=== PATIENT | male | born 1950 | race Caucasian/White ===

== ENCOUNTER → 2017-09-29 | Outpatient (CLI) | payer OTHER, MEDICARE ==
[~2017-09-29] MED LIST: ATOR20TA9 PO; CHOL20002 PO; ESOM20CA31 PO; LYSI500T PO; MULT-516 PO
[2017-09-29 10:39] LABS: MICROSCOPIC NOT IND
[2017-09-29 10:41] LABS: BASOPHILS # (AUTO) 0.03 x10^3/uL (0-0.1); BASOPHILS % (AUTO) 1 % (0-1); EOSINOPHILS # (AUTO) 0.09 x10^3/uL (0-0.4); EOSINOPHILS % (AUTO) 2 % (1-7); LYMPHOCYTES # (AUTO) 1.43 x10^3/uL (1-3.4); LYMPHOCYTES % (AUTO) 26 % (22-44); MD NO; MEAN CORPUSCULAR HEMOGLOBIN 31.6 pg (27.5-34.5); MEAN CORPUSCULAR HGB CONC 34.2 g/dL (33.2-36.2); MEAN CORPUSCULAR VOLUME 92.3 fL (81-97); MEAN PLATELET VOLUME 7.5 fL (7.4-10.4); MONOCYTES # (AUTO) 0.43 x10^3/uL (0.2-0.8); MONOCYTES % (AUTO) 8 % (2-9); NEUTROPHILS # (AUTO) 3.57 x10^3/uL (1.8-6.8); NEUTROPHILS % (AUTO) 64 % (42-75); PLATELET COUNT 241 x10^3/uL (130-400); RED BLOOD COUNT 4.79 x10^6/uL (4.38-5.82); RED CELL DISTRIBUTION WIDTH 12.7 % (9.4-14.8)
[2017-09-29 10:47] LABS: INTERNATIONAL NORMALIZED RATIO 1.09 (0.93-1.1); PROTHROMBIN TIME 11.2 Seconds (9.6-11.5)
[2017-09-29 10:49] LABS: CREATININE 0.88 mg/dL (0.7-1.3); GLUCOSE, FASTING 94 mg/dL (74-106)
[2017-09-29 10:52] LABS: CULTURE INDICATED? NO
== END | disposition home or self-care (01) ==
LOC: RAD 09:06
PROVIDERS: ATTEND Internal Medicine
DX: Z01.818 Encounter for other preprocedural examination (principal); C61 Malignant neoplasm of prostate
CPT/HCPCS: 36415; 71046; 81003; 82565; 82947; 84132; 84295; 85025; 85610

== ENCOUNTER → 2017-10-09 | Outpatient (CLI) | payer OTHER, MEDICARE | END | disposition home or self-care (01) | LOC: LAB 11:26 | PROVIDERS: ATTEND Internal Medicine | DX: Z01.818 Encounter for other preprocedural examination (principal) | CPT/HCPCS: 36415; 86850; 86900 ==

== ENCOUNTER 2017-10-31 09:43 | Inpatient (IN) | payer OTHER, MEDICARE ==
[~2017-10-31] VITALS: Ht 180.3 cm; Wt 77.1 kg
[~2017-10-31 09:43] MED LIST changes: -CHOL20002 PO; +CHOL200052 PO
[2017-10-31] MEDS ORDERED: SODIUM CHLORIDE FLUSH 10ML SYR IVF ONE (10:30)
[2017-10-31] MEDS ORDERED: FAMOTIDINE 20 MG/2 ML IVP ONE (10:30)
[2017-10-31] MEDS ORDERED: ONDANSETRON ODT 4 MG PO ONE (10:30)
[2017-10-31] MEDS ORDERED: SODIUM CHLORIDE 0.9% 1,000ML IVBOLUS ONE (10:30)
[2017-10-31] MEDS ORDERED: ONDANSETRON ODT 4 MG ONE (10:36)
[2017-10-31] MEDS ORDERED: FAMOTIDINE 20 MG/2 ML ONE (10:37)
[2017-10-31 11:16] LABS: BASOPHILS % (AUTO) 0 % (0-1); EOSINOPHILS % (AUTO) 0 % (1-7); LYMPHOCYTES # (AUTO) 0.58 x10^3/uL (1-3.4); LYMPHOCYTES % (AUTO) 4 % (22-44); MD NO; MEAN CORPUSCULAR HEMOGLOBIN 32.3 pg (27.5-34.5); MEAN CORPUSCULAR VOLUME 92.4 fL (81-97); MEAN PLATELET VOLUME 7.1 fL (7.4-10.4); MONOCYTES % (AUTO) 2 % (2-9); NEUTROPHILS # (AUTO) 15.39 x10^3/uL (1.8-6.8); NEUTROPHILS % (AUTO) 94 % (42-75); PLATELET COUNT 431 x10^3/uL (130-400); RED BLOOD COUNT 4.37 x10^6/uL (4.38-5.82); RED CELL DISTRIBUTION WIDTH 12.3 % (9.4-14.8)
[2017-10-31 11:27] LABS: ALANINE AMINOTRANSFERASE 27 U/L (12-78); ALBUMIN 3.7 g/dL (3.4-5.0); ANION GAP 12 mmol/L (5-15); CALCIUM 9.5 mg/dL (8.5-10.1); CHLORIDE 102 mmol/L (98-107)
[2017-10-31 11:31] LABS: ALKALINE PHOSPHATASE 84 U/L (45-117); BILIRUBIN,TOTAL 0.6 mg/dL (0.2-1.0); TOTAL PROTEIN 8.1 g/dL (6.4-8.2); TROPONIN I < 0.015 ng/mL (0.000-0.045)
[2017-10-31] MEDS ORDERED: POTASSIUM CHLORIDE 20 MEQ in D5%-0.45% NACL 1,000 ML IV ONE (12:47)
[2017-10-31 12:55] LABS: CULTURE INDICATED? YES; MICROSCOPIC INDICATED
[2017-10-31] MEDS ORDERED: ONDANSETRON 2MG/ML, 2ML IVPush PRN (13:00)
[2017-10-31] MEDS ORDERED: SODIUM CHLORIDE FLUSH 10ML SYR IVF PRN (13:00)
[2017-10-31] MEDS ORDERED: LORazepam 2 MG/ML, 1ML ONE (13:13)
[2017-10-31 14:10] VITALS: BP 131/79
[2017-10-31] MEDS ORDERED: ONDANSETRON ODT 4 MG PO SCH (17:00)
[2017-10-31] MEDS ORDERED: NS + 20MEQ KCL 1,000 ML IV SCH (17:30)
[2017-10-31] MEDS ORDERED: ACETAMINOPHEN 500 MG TABLET PO SCH (18:00)
[2017-10-31] MEDS ORDERED: PROMETHAZINE 25 MG/ML, 1ML IM PRN (18:00)
[2017-10-31] MEDS ORDERED: ACETAMINOPHEN 500 MG TABLET PO/NG SCH (18:00)
[2017-10-31] MEDS: ONDANSETRON ODT 4 MG PO SCH ×2 (18:00→21:44)
[2017-10-31] MEDS: CEFTRIAXONE 1,000 MG in SODIUM CHLORIDE 0.9% 50 ML IVPB SCH (18:40)
[2017-10-31 18:51] VITALS: BP 136/84
[2017-10-31] MEDS ORDERED: BISACODYL 10 MG SUPP PR ONE (19:00)
[2017-10-31] MEDS ORDERED: ACETAMINOPHEN 650 MG/20.3 ML UDC PO/NG SCH (19:30)
[2017-10-31] MEDS: ACETAMINOPHEN 650 MG/20.3 ML UDC PO/NG SCH (19:30)
[2017-10-31] MEDS: METOCLOPRAMIDE 5 MG/ML, 2ML IV SCH (19:34)
[2017-10-31] MEDS: LATANOPROST OPHTH 0.005%, 2.5ML EACHEYE SCH (20:44)
[2017-10-31] MEDS: PANTOPRAZOLE 40 MG IV IV SCH (20:44)
[2017-10-31] MEDS ORDERED: PANTOPROZOLE 40MG TABLET PO SCH (21:00)
[2017-11-01 00:06] VITALS: BP 137/87
[2017-11-01] MEDS: ACETAMINOPHEN 650 MG/20.3 ML UDC PO/NG SCH ×4 (00:43→20:13)
[2017-11-01] MEDS: METOCLOPRAMIDE 5 MG/ML, 2ML IV SCH ×5 (00:43→23:48)
[2017-11-01] MEDS: ONDANSETRON ODT 4 MG PO SCH ×6 (01:38→20:04)
[2017-11-01 04:06] VITALS: BP 136/79
[2017-11-01 04:47] LABS: MEAN CORPUSCULAR HEMOGLOBIN 31.6 pg (27.5-34.5); MEAN CORPUSCULAR HGB CONC 34.3 g/dL (33.2-36.2); MEAN CORPUSCULAR VOLUME 92.3 fL (81-97); MEAN PLATELET VOLUME 7.3 fL (7.4-10.4); PLATELET COUNT 394 x10^3/uL (130-400); RED BLOOD COUNT 3.78 x10^6/uL (4.38-5.82); RED CELL DISTRIBUTION WIDTH 12.8 % (9.4-14.8)
[2017-11-01] MEDS: NS + 20MEQ KCL 1,000 ML IV SCH ×2 (04:49→13:56)
[2017-11-01 04:57] LABS: CHLORIDE 109 mmol/L (98-107)
[2017-11-01 05:06] LABS: ALANINE AMINOTRANSFERASE 19 U/L (12-78); ALBUMIN 2.9 g/dL (3.4-5.0); ALKALINE PHOSPHATASE 64 U/L (45-117); ANION GAP 10 mmol/L (5-15); BILIRUBIN,TOTAL 0.5 mg/dL (0.2-1.0); CALCIUM 8.2 mg/dL (8.5-10.1); CREATININE 0.84 mg/dL (0.7-1.3); TOTAL PROTEIN 6.4 g/dL (6.4-8.2)
[2017-11-01 05:10] LABS: MD YES
[2017-11-01 05:16] LABS: <PLATELET ESTIMATE> ADEQUATE; <PLT MORPHOLOGY> NORMAL PLT MORPH; <RBC MORPHOLOGY> NORMAL; BAND#(MANUAL) 1.06 x10^3/uL; BANDS%(MANUAL) 18 % (0-7); LYMPH#(MANUAL) 0.53 x10^3/uL (1-3.4); LYMPHS% (MANUAL) 9 % (22-44); MONOS#(MANUAL) 0.41 x10^3/uL (0.3-2.7); MONOS% (MANUAL) 7 % (2-9); SEG#(MANUAL) 3.89 x10^3/uL (1.8-6.8); SEGS% (MANUAL) 66 % (42-75)
[2017-11-01 07:04] VITALS: BP 160/88
[2017-11-01] MEDS: PANTOPRAZOLE 40 MG IV IV SCH ×2 (09:02→20:04)
[2017-11-01 12:58] VITALS: BP 161/82
[2017-11-01] MEDS: CEFTRIAXONE 1,000 MG in SODIUM CHLORIDE 0.9% 50 ML IVPB SCH (16:37)
[2017-11-01] MEDS: LATANOPROST OPHTH 0.005%, 2.5ML EACHEYE SCH (20:23)
[2017-11-01 20:33] VITALS: BP 146/80
[2017-11-02] MEDS: NS + 20MEQ KCL 1,000 ML IV SCH ×2 (00:20→12:06)
[2017-11-02] MEDS: ONDANSETRON ODT 4 MG PO SCH ×5 (00:23→18:25)
[2017-11-02] MEDS: ACETAMINOPHEN 650 MG/20.3 ML UDC PO/NG SCH ×3 (02:02→13:47)
[2017-11-02 02:28] VITALS: BP 142/87
[2017-11-02 04:57] LABS: BASOPHILS # (AUTO) 0.02 x10^3/uL (0-0.1); BASOPHILS % (AUTO) 0 % (0-1); EOSINOPHILS # (AUTO) 0.18 x10^3/uL (0-0.4); EOSINOPHILS % (AUTO) 3 % (1-7); LYMPHOCYTES # (AUTO) 1.01 x10^3/uL (1-3.4); LYMPHOCYTES % (AUTO) 16 % (22-44); MD NO; MEAN CORPUSCULAR HEMOGLOBIN 31.4 pg (27.5-34.5); MEAN CORPUSCULAR HGB CONC 33.8 g/dL (33.2-36.2); MONOCYTES # (AUTO) 0.55 x10^3/uL (0.2-0.8); MONOCYTES % (AUTO) 9 % (2-9); NEUTROPHILS # (AUTO) 4.58 x10^3/uL (1.8-6.8); NEUTROPHILS % (AUTO) 72 % (42-75); PLATELET COUNT 290 x10^3/uL (130-400); RED BLOOD COUNT 3.35 x10^6/uL (4.38-5.82); RED CELL DISTRIBUTION WIDTH 12.6 % (9.4-14.8)
[2017-11-02 05:02] LABS: ALBUMIN 2.6 g/dL (3.4-5.0); ANION GAP 6 mmol/L (5-15); CALCIUM 7.9 mg/dL (8.5-10.1); CHLORIDE 110 mmol/L (98-107)
[2017-11-02 05:10] LABS: ALANINE AMINOTRANSFERASE 14 U/L (12-78); ALKALINE PHOSPHATASE 63 U/L (45-117); BILIRUBIN,TOTAL 0.3 mg/dL (0.2-1.0); CREATININE 0.63 mg/dL (0.7-1.3); TOTAL PROTEIN 5.9 g/dL (6.4-8.2)
[2017-11-02 07:12] VITALS: BP 157/87
[2017-11-02] MEDS: METOCLOPRAMIDE 5 MG/ML, 2ML IV SCH ×3 (09:03→18:25)
[2017-11-02] MEDS: PANTOPRAZOLE 40 MG IV IV SCH ×2 (09:03→21:12)
[2017-11-02 14:16] VITALS: BP 106/67
[2017-11-02] MEDS: CEFTRIAXONE 1,000 MG in SODIUM CHLORIDE 0.9% 50 ML IVPB SCH (18:25)
[2017-11-02 21:00] VITALS: BP 144/78
[2017-11-02] MEDS: LATANOPROST OPHTH 0.005%, 2.5ML EACHEYE SCH (21:12)
[2017-11-02] MEDS ORDERED: ACETAMINOPHEN 650 MG/20.3 ML UDC PO/NG PRN (21:30)
[2017-11-03 00:18] VITALS: BP 136/70
[2017-11-03] MEDS: NS + 20MEQ KCL 1,000 ML IV SCH (00:21)
[2017-11-03] MEDS: ONDANSETRON ODT 4 MG PO SCH ×6 (00:21→20:30)
[2017-11-03] MEDS: METOCLOPRAMIDE 5 MG/ML, 2ML IV SCH ×4 (00:22→19:00)
[2017-11-03 05:02] LABS: BASOPHILS # (AUTO) 0.03 x10^3/uL (0-0.1); BASOPHILS % (AUTO) 1 % (0-1); EOSINOPHILS # (AUTO) 0.28 x10^3/uL (0-0.4); EOSINOPHILS % (AUTO) 5 % (1-7); LYMPHOCYTES # (AUTO) 0.98 x10^3/uL (1-3.4); LYMPHOCYTES % (AUTO) 19 % (22-44); MD NO; MEAN CORPUSCULAR HEMOGLOBIN 30.6 pg (27.5-34.5); MEAN CORPUSCULAR HGB CONC 32.9 g/dL (33.2-36.2); MEAN PLATELET VOLUME 7.1 fL (7.4-10.4); MONOCYTES % (AUTO) 8 % (2-9); NEUTROPHILS # (AUTO) 3.61 x10^3/uL (1.8-6.8); NEUTROPHILS % (AUTO) 68 % (42-75); PLATELET COUNT 299 x10^3/uL (130-400); RED BLOOD COUNT 3.33 x10^6/uL (4.38-5.82); RED CELL DISTRIBUTION WIDTH 12.5 % (9.4-14.8)
[2017-11-03 05:15] LABS: ANION GAP 8 mmol/L (5-15); CALCIUM 7.7 mg/dL (8.5-10.1); CHLORIDE 108 mmol/L (98-107)
[2017-11-03 05:17] LABS: CREATININE 0.69 mg/dL (0.7-1.3)
[2017-11-03] MEDS: PANTOPRAZOLE 40 MG IV IV SCH ×2 (08:01→20:32)
[2017-11-03 09:26] VITALS: BP 165/91
[2017-11-03 09:40] LABS: % IRON SATURATION 17 % (20-55); IRON LEVEL 39 mcg/dL (65-175); TOTAL IRON BINDING CAPACITY 225 mcg/dL (250-450)
[2017-11-03] MEDS: SULFAMETH./TRIMETHOPRIM DS 800MG/160MG TABLET PO SCH ×2 (10:05→20:27)
[2017-11-03 13:29] VITALS: BP 118/70
[2017-11-03] MEDS: ENOXAPARIN 40 MG/0.4 ML SQ SCH (16:27)
[2017-11-03 17:31] LABS: BASOPHILS # (AUTO) 0.04 x10^3/uL (0-0.1); BASOPHILS % (AUTO) 0 % (0-1); EOSINOPHILS # (AUTO) 0.08 x10^3/uL (0-0.4); EOSINOPHILS % (AUTO) 1 % (1-7); LYMPHOCYTES # (AUTO) 0.42 x10^3/uL (1-3.4); LYMPHOCYTES % (AUTO) 4 % (22-44); MD SCAN; MEAN CORPUSCULAR HEMOGLOBIN 31.6 pg (27.5-34.5); MEAN CORPUSCULAR VOLUME 93.1 fL (81-97); MEAN PLATELET VOLUME 7.1 fL (7.4-10.4); MONOCYTES # (AUTO) 0.29 x10^3/uL (0.2-0.8); MONOCYTES % (AUTO) 3 % (2-9); NEUTROPHILS # (AUTO) 10.64 x10^3/uL (1.8-6.8); NEUTROPHILS % (AUTO) 93 % (42-75); PLATELET COUNT 357 x10^3/uL (130-400); RED BLOOD COUNT 3.62 x10^6/uL (4.38-5.82); RED CELL DISTRIBUTION WIDTH 12.4 % (9.4-14.8)
[2017-11-03 19:59] LABS: CULTURE INDICATED? YES; MICROSCOPIC INDICATED
[2017-11-03] MEDS: LATANOPROST OPHTH 0.005%, 2.5ML EACHEYE SCH (20:27)
[2017-11-03 20:50] VITALS: BP 103/57
[2017-11-04] MEDS: ONDANSETRON ODT 4 MG PO SCH ×4 (00:30→12:30)
[2017-11-04] MEDS: METOCLOPRAMIDE 5 MG/ML, 2ML IV SCH ×3 (00:31→12:36)
[2017-11-04 02:46] LABS: BASOPHILS # (AUTO) 0.07 x10^3/uL (0-0.1); BASOPHILS % (AUTO) 1 % (0-1); EOSINOPHILS % (AUTO) 1 % (1-7); LYMPHOCYTES # (AUTO) 0.89 x10^3/uL (1-3.4); LYMPHOCYTES % (AUTO) 7 % (22-44); MD NO; MEAN CORPUSCULAR HEMOGLOBIN 31.3 pg (27.5-34.5); MEAN CORPUSCULAR HGB CONC 33.9 g/dL (33.2-36.2); MEAN CORPUSCULAR VOLUME 92.4 fL (81-97); MEAN PLATELET VOLUME 6.7 fL (7.4-10.4); MONOCYTES # (AUTO) 0.42 x10^3/uL (0.2-0.8); MONOCYTES % (AUTO) 3 % (2-9); NEUTROPHILS # (AUTO) 10.96 x10^3/uL (1.8-6.8); NEUTROPHILS % (AUTO) 88 % (42-75); PLATELET COUNT 363 x10^3/uL (130-400); RED BLOOD COUNT 3.65 x10^6/uL (4.38-5.82); RED CELL DISTRIBUTION WIDTH 12.8 % (9.4-14.8)
[2017-11-04 03:11] VITALS: BP 123/62
[2017-11-04 06:28] LABS: CLOSTRIDIUM DIFFICILE ANTIGEN NEGATIVE; CLOSTRIDIUM DIFFICILE TOXIN NEGATIVE (Negative)
[2017-11-04] MEDS: PANTOPRAZOLE 40 MG IV IV SCH (07:24)
[2017-11-04 07:43] VITALS: BP_SYST 100; BP_SYST 127; BP_DIAS 63; BP_DIAS 78
[2017-11-04] MEDS: SULFAMETH./TRIMETHOPRIM DS 800MG/160MG TABLET PO SCH ×2 (09:00→20:10)
[2017-11-04] MEDS ORDERED: CYSTO CONRAY II 250 ML VIAL UR ONE (11:18)
[2017-11-04 12:54] VITALS: BP 109/67
[2017-11-04] MEDS: ENOXAPARIN 40 MG/0.4 ML SQ SCH (15:25)
[2017-11-04] MEDS: FERROUS GLUCONATE 324 MG TABLET PO SCH (16:50)
[2017-11-04 19:29] VITALS: BP 124/68
[2017-11-04] MEDS: LATANOPROST OPHTH 0.005%, 2.5ML EACHEYE SCH (20:10)
[2017-11-05 01:18] VITALS: BP 131/72
[2017-11-05 04:47] LABS: BASOPHILS # (AUTO) 0.06 x10^3/uL (0-0.1); BASOPHILS % (AUTO) 1 % (0-1); EOSINOPHILS # (AUTO) 0.36 x10^3/uL (0-0.4); EOSINOPHILS % (AUTO) 6 % (1-7); LYMPHOCYTES # (AUTO) 1.03 x10^3/uL (1-3.4); LYMPHOCYTES % (AUTO) 18 % (22-44); MD NO; MEAN CORPUSCULAR HEMOGLOBIN 30.9 pg (27.5-34.5); MEAN CORPUSCULAR HGB CONC 33.5 g/dL (33.2-36.2); MEAN CORPUSCULAR VOLUME 92.1 fL (81-97); MEAN PLATELET VOLUME 7.1 fL (7.4-10.4); MONOCYTES # (AUTO) 0.59 x10^3/uL (0.2-0.8); MONOCYTES % (AUTO) 11 % (2-9); NEUTROPHILS % (AUTO) 64 % (42-75); PLATELET COUNT 352 x10^3/uL (130-400); RED CELL DISTRIBUTION WIDTH 12.8 % (9.4-14.8)
[2017-11-05] MEDS: FERROUS GLUCONATE 324 MG TABLET PO SCH (07:41)
[2017-11-05] MEDS: SULFAMETH./TRIMETHOPRIM DS 800MG/160MG TABLET PO SCH (07:41)
[2017-11-05 07:54] VITALS: BP 107/67
[2017-11-05] MEDS ORDERED: LATA2.5D3 EACHEYE (08:29)
[2017-11-05] MEDS ORDERED: SULF-169 PO (08:29)
[2017-11-05] MEDS ORDERED: FERR325T16 PO (08:39)
== END 2017-11-05 10:17 | disposition home or self-care (01) | DRG 389 ==
LOC: ED 12:16 → EDIP 12:51 → 3NW 13:37 → DCLOUNGE 11-05 10:06
PROVIDERS: ADMIT Internal Medicine; ATTEND Internal Medicine
PROC: 0D9670Z Drainage of Stomach with Drainage Device, Via Natural or Artificial Opening (ICD-10-PCS; principal; 2017-10-31)
DX: K91.31 Postprocedural partial intestinal obstruction (principal); N39.0 Urinary tract infection, site not specified; M41.85 Other forms of scoliosis, thoracolumbar region; R31.0 Gross hematuria; M51.35 Other intervertebral disc degeneration, thoracolumbar region; Y83.6 Removal of other organ (partial) (total) as the cause of abnormal reaction of the patient, or of later complication, without mention of misadventure at the time of the procedure; E55.9 Vitamin D deficiency, unspecified; K21.9 Gastro-esophageal reflux disease without esophagitis; Z85.46 Personal history of malignant neoplasm of prostate; B96.1 Klebsiella pneumoniae [K. pneumoniae] as the cause of diseases classified elsewhere; D50.9 Iron deficiency anemia, unspecified; E78.5 Hyperlipidemia, unspecified; H40.9 Unspecified glaucoma; K40.90 Unilateral inguinal hernia, without obstruction or gangrene, not specified as recurrent; Z80.8 Family history of malignant neoplasm of other organs or systems; Z82.0 Family history of epilepsy and other diseases of the nervous system; Z82.41 Family history of sudden cardiac death; Z82.49 Family history of ischemic heart disease and other diseases of the circulatory system; Z90.79 Acquired absence of other genital organ(s); Y92.89 Other specified places as the place of occurrence of the external cause
CPT/HCPCS: 36415; 74021; 74022; 74430; 99285; S0028; 74177; 80048; 80053; 81001; 83540; 83550; 83605; 83690; 84484; 85025; 87040; 87077; 87086; 87186; 87324; 93005; 96361; 96374; G0378; J0696; J1650; J3480; Q0162; Q9958; C9113; J2765; J7030

== ENCOUNTER 2017-12-04 20:19 | Emergency (ER) | payer OTHER, MEDICARE ==
[~2017-12-04] VITALS: Ht 180.3 cm; Wt 81.0 kg
[~2017-12-04 20:19] MED LIST changes: +FERR325T16 PO; +LATA2.5D3 EACHEYE; +SULF-169 PO
[2017-12-04 20:24] VITALS: BP 162/82
[2017-12-04] MEDS ORDERED: CEFDINIR 300 MG CAPSULE ONE (20:57)
[2017-12-04] MEDS ORDERED: CEFDINIR 300 MG CAPSULE PO ONE (21:00)
[2017-12-04 21:17] LABS: MICROSCOPIC AUTO
[2017-12-04 21:21] LABS: CULTURE INDICATED? YES
== END 2017-12-04 21:20 | disposition home or self-care (01) ==
LOC: ED 21:00
DX: R31.0 Gross hematuria (principal); Z90.49 Acquired absence of other specified parts of digestive tract; Z85.46 Personal history of malignant neoplasm of prostate
CPT/HCPCS: 81001; 87077; 87086; 87186; 99284